=== PATIENT | female | born 1940 | race Caucasian/White ===

== ENCOUNTER 2016-05-08 19:10 | Inpatient (IN) | payer MEDICARE, OTHER ==
[~2016-05-08] VITALS: Ht 162.6 cm; Wt 65.5 kg
--- NOTE | ~2016-05-08 | DS ---
ADMIT: 05/08/2016 RM/LOC: 415 [facility] MR#: [id number] [address] [address] [place] [address] [place] [address] Discharge Summary SEX: F AGE: 75 : 1940 ADMISSION DATE: 05/08/2016 DISCHARGE DATE: 05/12/2016 DISCHARGE DIAGNOSES: 1. Mucus plugging and known history of laryngeal carcinoma, status post tracheostomy. 2. History recent cellulitis of trach with known MRSA and Pseudomonas infection. 3. Tracheal dilatation on 05/06/2015. 4. Diabetes. 5. Morbid obesity. HISTORY OF PRESENT ILLNESSES: Her history of present illness is well documented in her history and physical. LABORATORY AND RADIOGRAPHIC DATA: Her laboratory and radiographic during her assessment showed a white count of 7.3, hemoglobin 12.0, and platelet count 243,000. Her urinalysis showed no acute abnormalities. Her sodium was 140, potassium 3.6, BUN and creatinine 13 and 0.7, blood sugar 196, and albumin 3.3. ABG showed pH of 7.33, pCO2 of 58, and PO2 of 163. Her influenza was negative. Chest x-ray showed a stable postop changes with tracheostomy tube in place. Modified barium swallow, please see report as per her speech therapist. HOSPITAL COURSE: She was admitted to [facility] with increasing shortness of breath, brought in by squad from home, mucus plugging. We, at this time, will admit for aggressive pulmonary hygiene. She will need followup with Dr. Mejia as she has recently had a stretching of her trachea, esophageal dilatation. We will also try to work with her family as well as with her respiratory care provider to ensure that she is getting adequate oxygenation and humidification within the home setting. She is admitted as an OPO admit today during this hospitalization. Sydnie Garcia MD/ brown JOB #: [id number] CC: Sydnie Garcia MD, Attending Physician Sydnie Garcia MD, Family Physician
[~2016-05-08 19:10] MED LIST: ACETYLCYSTEINE IH; ASA CHILDREN'S81 MG PO; ASPIRIN EC81 MG PO; AUGMENTIN875 MG PO; BACTROBAN OINT.22 GM TP; BENADRYL-DPS25 MG PO; CEPHALEXIN PO; DELTASONE DPS1 MG PO; DELTASONE DPS10 MG PO; DIFLUCAN PO; DULCOLAX-DPS10 MG PR; DUONEB DPS3 ML IH; ECOTRIN81 MG PO; ENULOSE10 GM/15 M PO; GLUTOSE 1537.5 GM PO; HYDROCORTISONE 0.5% TP; KEFLEX-DPS500 MG PO; KLOR-CON M2020 ME1 PO; LASIX DPS20 MG PO; LASIX DPS40 MG PO; LEVAQUIN DPS500 MG PO; LEXAPRO DPS20 MG PO; LORTAB LIQUID D15 ML PO; MAALOX DPS30 ML PO; MUCOMYST 10% DPS4 ML IH; MUCOMYST 20% DP30 ML IH; NILSTAT SUSP DPS5 ML PO; NOVOLIN R,100 UNITS/ SQ; NOVOLIN R100 UNIT/1 SQ; ORGAN-I NR200 MG PO; PEPCID DPS20 MG PO; PERIDEX15 ML PO; PROAIR RESPICL90 MCG IH; PROLIA60 MG/ML SQ; REGLAN10 MG PO; SENOKOT DPS8.6 MG PO; SURFAK DPS240 MG PO; SYNTHROID DP0.088 MG PO; SYNTHROID100 MCG PO; TYLENOL DPS325 MG PO; VITAMIN D-32000 UNI1 PO; ZANTAC DPS150 MG PO; ZESTRIL DPS10 MG PO; ZOCOR20 MG PO
--- NOTE | 2016-05-09 01:36 | ER ---
ADMIT: 05/08/2016 RM/LOC: ER [facility] MR#: [id number] [address] [address] [place] [address] [place] [address] Emergency Room Report SEX: F AGE: 75 : 1940 DATE: 05/08/2016 CHIEF COMPLAINT: Shortness of breath. HISTORY OF PRESENT ILLNESS: The patient is a 75-year-old female, recently released from skilled care after prolonged stay for COPD with increased secretions and plugged cannula, transferred tonight with increasing respiratory distress, shortness of breath. When paramedics arrived, cannula was plugged. They removed the internal cannula, gave DuoNeb over trach with improvement. The patient does most of her own self-cares with daughter dropping in at least once a day. The patient was just seen by Dr. Mejia on May 05 and had tracheal and esophageal dilatations, now she states she cannot swallow. PAST MEDICAL HISTORY: None. ALLERGIES: NONE. MEDICATIONS: Please see nurse's MAR. ILLNESSES: Type 2 diabetes with oral and subcu insulin, COPD, hyperlipidemia, laryngeal cancer, status post radiation and chemo, and laryngectomy, tracheal and esophageal strictures, osteoporosis, decubitus, and hypothyroidism. OPERATIONS: Laryngectomy with tracheostomy. SOCIAL HISTORY: , lives independently. Past smoker. No illicit drugs or alcohol. FAMILY HISTORY: Negative per chart review. REVIEW OF SYSTEMS: A 12-point review of systems negative for all other systems, illnesses, or operations except as outlined above. PHYSICAL EXAMINATION: VITAL SIGNS: Temperature 96, pulse 97, respirations 26, BP 129/51, and SaO2 of 98% 6 L. GENERAL: Moderate distress, nontoxic, non-diaphoretic without jaundice or icterus. HEENT: Normocephalic. No evidence of epistaxis, rhinorrhea, or otorrhea. NECK: Supple without lymphadenopathy or thyromegaly. Tracheostomy with no evidence cellulitis. CHEST: Breath sounds equal and diminished with expiratory wheeze noted throughout. HEART: Regular rate and rhythm without murmur, gallop, or edema. ABDOMEN: Soft, nontender, nondistended without mass or megaly. Bowel sounds hypoactive. EXTREMITIES: No evidence of Homans sign, synovitis, or dermatitis. NEURO: EOMI. PERRLA. No evidence of drift, dysarthria, or ataxia. Gait not assessed. ADMIT: 05/08/2016 RM/LOC: ER [facility] MR#: [id number] [address] [address] [place] [address] [place] [address] Emergency Room Report SEX: F AGE: 75 : 1940 MENTAL STATUS: Alert, oriented, and cooperative without delusions, hallucinations, or abnormal thought content. MEDICAL DECISION MAKING: The patient was given oral challenge at bedside, tolerated water well without regurgitation, continuous albuterol 15 mg with ipratropium with improvement. Solu-Medrol was given in the field. Magnesium 2 g IV piggyback with decreased respiratory distress. Chest x-ray shows no infiltrate. EKG shows sinus rhythm without ST-T or Q-wave change, unchanged from previous. Normal CBC, CMP, except potassium 3.6, glucose 196, lactic 0.7, CRP 2.29, D-dimer 0.64 normal for age, and troponin less than 0.015. BNP 1502. Procalcitonin less than 0.05. UA; 1+ ketone, 300 glucose. ABGs 6 L; pH 7.36, pCO2 of 55, PO2 155. Discussed case at length with Dr. Garcia, who agreed to admit. The family strongly wants admission and understands that she needs more structured care than she can provide herself or their step dad is willing to provide. Suspect the patient will need skilled care yet again. DIAGNOSES: 1. Plugged tracheostomy cannula. 2. Chronic obstructive pulmonary disease. 3. Laryngeal cancer, status post laryngectomy and tracheostomy. RECOMMENDATION: Admit to inpatient telemetry for Dr. Garcia. ADMISSION/DISCHARGE CONDITION: Stable. The patient is a DNR/DNI. Vito Cordova MD/ modl JOB #: [id number] CC: Vito Cordova MD, Attending Physician Sydnie Garcia MD, Family Physician Sydnie aGrcia MD
--- NOTE | 2016-05-12 09:55 | NUR ---
PT HAS DISCHARGE ORDERS. PT WELL KNOWN TO OUR CLINIC. PLAN FOR PT TO GO HOME WITH [facility]. PU TO BUTTOCKS IS CHRONIC AND HAS BEEN HEALED SEVERAK TIMES THEN REOPENS D/T PT NON COMPLIANCE WITH OFFLOADING AT HOME. PLAN IS FOR PT TO RETURN HOME WITH [facility] AND FAMILY SUPPORT. SENSICARE BID AND PRN RECOMMENDED TO BUTTOCKS AND FOLLOW UP IN WOUND CARE CLINIC IN 1 WEEK WITH A SPECIAL PROCEDURE TECHNOLOGIST
--- NOTE | 2016-05-13 09:52 | CO ---
ADMIT: 05/08/2016 RM/LOC: 415 [facility] MR#: [id number] [address] [address] [place] [address] [place] [address] Consultation SEX: F AGE: 75 : 1940 DATE OF CONSULTATION: 05/12/2016 ATTENDING PHYSICIAN: Sydnie Garcia MD CONSULTING PHYSICIAN: Christopher Mejia MD CHIEF COMPLAINT: Soreness left of throatnjv with odynophagia and persistent dysphagia. HISTORY OF PRESENT ILLNESS: Elly is 75 years old. She is postop total laryngectomy, partial pharyngectomy, and esophageal repair, in treatment of squamous cell carcinoma. She is post surgical and radiation treatment and has had difficulty with recurring dysphagia that requires cervical esophageal dilation due to esophageal stricture. She underwent general anesthesia and esophageal dilation 2 weeks previous. She continues to have swallowing problems and has developed soreness in the left side of her throat. She was recently hospitalized for cellulitis surrounding her tracheostome, at this time is not having pain or swelling of the soft tissues of the neck. PHYSICAL EXAMINATION: HEENT: Shows her pupils to be equal. No proptosis. Ears clear. Nose; airway is patent. No mucus or purulence in the nasal cavity or nasopharynx. Mouth and pharynx, good symmetry. No exudate or lesions. NECK: No palpable adenopathy or masses. No induration or erythema to suggest recurrent cellulitis. Tracheostomy tube is in good position in permanent tracheostome with good patency and no purulence. PROCEDURE: Fiberoptic examination of the nose, pharynx, and esophagus performed with the flexible nasal endoscope. She tolerated this very well. The scope passed through the nose, nasopharynx, hypopharynx into the esophagus without restriction and there was no visible evidence of esophageal stricture to full length of the flexible endoscope. There was no evidence of lesion, tumor mass, or infection. Left pharynx has an abrasion in the hypopharynx likely from recent esophagoscopy with dilation. IMPRESSION: Soreness, left-sided throat, and odynophagia. Post cervical esophageal dilation without evidence of infection, tumor mass, or recurrent stricture. ADMIT: 05/08/2016 RM/LOC: 415 [facility] MR#: [id number] [address] [address] [place] [address] [place] [address] Consultation SEX: F AGE: 75 : 1940 RECOMMENDATIONS: Recommend we will continue to take diet as tolerated. At present, she is confined to using liquids. She is to continue analgesics p.r.n. I anticipate improvement in the pharyngeal soreness as the lower pharynx continues to heal. Concerning her swallowing ability, she should continue with speech and swallowing therapy in hopes of gradual improvement and ability to maintain adequate hydration and alimentation. Elly is scheduled for followup ENT exam in 2 weeks to debride the tracheostome and help prevent recurrence of the peristomal and cellulitis. Christopher Mejia MD/ shagufta JOB #: [id number] CC: Sydnie Garcia MD, Attending Physician Sydnie Garcia MD, Family Physician
[2016-05-13] MEDS ORDERED: CELEXA DPS20 MG PO (11:50)
[2016-05-13] MEDS ORDERED: KEFLEX-DPS500 MG PO (11:53)
[2016-05-13] MEDS ORDERED: TYLENOL ELIXIR PO (11:58)
--- NOTE | 2016-05-25 08:09 | HP ---
ADMIT: 05/08/2016 RM/LOC: [address] [facility] MR#: [id number] [address] [address] ELLY BORREGO [address] [place] [address] History and Physical SEX: F AGE: 75 : 1940 DATE OF SERVICE: HISTORY OF PRESENT ILLNESS: Elly is a 75-year-old female, who I care for, who has had multiple hospitalizations within the last year. She has a known history of laryngeal carcinoma, status post trach, recent hospitalizations for peritracheal cellulitis, MRSA, and Pseudomonas. She is admitted to the hospital at this time, status post tracheal dilatation on 05/06/2015, with increasing respiratory distress and mucous plugging. She was brought to the emergency room for further evaluation and care. In the ER, her pH was 7.33, pCO2 of 58, pO2 of 163, sodium 140, potassium 3.6, BUN and creatinine 13 and 0.17. White count 5.3, hemoglobin 12.0, and platelet count 243,000. UA was 1+ protein. Trach showed no acute changes. SOCIAL HISTORY: She lives with her . FAMILY HISTORY: Noncontributory. REVIEW OF SYSTEMS: As per HPI. Frequent hospitalizations. MEDICATIONS: Per her MAR. PHYSICAL EXAMINATION: GENERAL: She is alert, in no acute distress at this time. VITAL SIGNS: On O2 per mask, per her tracheostomy with humidification. LUNGS: She has soft inspiratory and expiratory wheezes present. EXTREMITIES: No evidence of edema. ASSESSMENT: Readmission a 75-year-old with history of laryngeal carcinoma with mucus plugging, respiratory distress, hypoxia, we at this time will admit, status post recent esophageal dilatation. We will ask Dr. Mejia to assist and follow in her care. Review her swallowing abilities as well as speech therapy. Continue her medications as appropriate. Continue to follow closely. Sydnie Garcia MD/ brown JOB #: [id number] CC: Sydnie Garcia MD, Attending Physician Sydnie Garcia MD, Family Physician
== END 2016-05-12 16:00 | disposition home health service (06) | DRG 206 ==
LOC: ER 19:10 → 4PCU 22:36
PROVIDERS: ADMIT Internal Medicine
PROC: 0CJY8ZZ Inspection of Mouth and Throat, Via Natural or Artificial Opening Endoscopic (ICD-10-PCS; principal; 2016-05-12)
DX: J95.03 Malfunction of tracheostomy stoma (principal); J44.9 Chronic obstructive pulmonary disease, unspecified; J98.09 Other diseases of bronchus, not elsewhere classified; R13.10 Dysphagia, unspecified; E66.01 Morbid (severe) obesity due to excess calories; E11.9 Type 2 diabetes mellitus without complications; R09.02 Hypoxemia; F32.9 Major depressive disorder, single episode, unspecified; E78.5 Hyperlipidemia, unspecified; M81.0 Age-related osteoporosis without current pathological fracture; E03.9 Hypothyroidism, unspecified; Z79.4 Long term (current) use of insulin; Z79.84 Long term (current) use of oral hypoglycemic drugs; Z85.21 Personal history of malignant neoplasm of larynx; Z87.891 Personal history of nicotine dependence; Z66 Do not resuscitate; Z86.14 Personal history of Methicillin resistant Staphylococcus aureus infection

== ENCOUNTER 2016-05-17 10:59 | Inpatient (IN) | payer MEDICARE, OTHER ==
[~2016-05-17] VITALS: Ht 162.6 cm; Wt 73.7 kg
--- NOTE | ~2016-05-17 | OR ---
ADMIT: 05/17/2016 RM/LOC: 406 [facility] MR#: [id number] [address] [facility] [address] [place] [address] [place] [address] [place] [address] Operative/Delivery Room Report SEX: F AGE: 75 : 1940 SURGERY DATE: 05/18/2016 SURGEON: Dipak Weinstein MD PREPROCEDURE DIAGNOSIS: Upper esophageal stricture status post laryngectomy and radiation therapy with recurrent dysphagia, failure to thrive. POSTPROCEDURE DIAGNOSIS: Upper esophageal stricture status post laryngectomy and radiation therapy with recurrent dysphagia, failure to thrive. PROCEDURE: EGD, PEG tube placement. INDICATIONS: The patient is 75-year-old female with laryngeal cancer status post laryngectomy, radiation therapy with recurrent upper esophageal stricture, dysphagia, failure to thrive who presents for upper endoscopy and G- tube placement. FINDINGS: Patient taken to the operative room. She was intubated and sedated. The gastroscope was introduced right at the oropharynx where there was immediately a stricture. Initially it was difficult to negotiate this stricture. I was going to dilate it, but I was able to eventually manipulate myself by this stricture into the distal esophagus, stomach through the pylorus into the normal duodenum. I was able with transillumination and palpation to find an area safe for G-tube placement at a previous G-tube site in the left subcostal region. We prepped with chlorhexidine, injected 1% lidocaine. I made a transverse 1 cm skin incision using #11 blade. Angiocath was placed within the stomach. A wire was threaded through our Angiocath. The wire was grasped with the wire loop and brought out through the mouth. The G-tube was threaded over our wire and brought through the anterior abdominal wall with skin markings at 2 cm. The PEG tube was assembled. The gastroscope was reintroduced down through the stricture into the stomach, showed G tube in good position with no complicating features. The gastroscope was removed. The patient tolerated the procedure without difficulty, transferred to recovery room in good condition. Dipak Weinstein MD/ shagufta JOB #: [id number] CC: Christopher Mejia, Attending Physician Sydnie Garcia, Family Physician
[~2016-05-17 10:59] MED LIST changes: +CELEXA DPS20 MG PO; +TYLENOL ELIXIR PO
--- NOTE | 2016-05-19 07:57 | CO ---
ADMIT: 05/17/2016 RM/LOC: 406 [facility] MR#: [id number] [address] [address] [place] [address] [place] [address] Consultation SEX: F AGE: 75 : 1940 DATE OF CONSULTATION: 05/18/2016 ATTENDING PHYSICIAN: Christopher Mejia CONSULTING PHYSICIAN: Sydnie Garcia MD REASON FOR CONSULTATION: Planned PEG tube secondary to inability to maintain nutrition as well as evidence of regurgitation through her tracheostomy and significant risk of aspiration. HISTORY OF PRESENT ILLNESS: Well documented in her H and P. LABORATORY AND RADIOGRAPHIC ASSESSMENT: Noted from her last admission, which was just within the last week. PAST MEDICAL HISTORY: Includes: 1. History of squamous cell carcinoma of the neck, resolving. 2. Total laryngectomy and partial pharyngectomy. 3. History of hyperlipidemia. 4. COPD. 5. Diabetes. 6. Hepatitis. 7. History of chronic gastric colonic dilatation. SOCIAL HISTORY: She lives with her . She has had frequent hospitalizations. Remote tobacco. No alcohol. FAMILY HISTORY: Noncontributory. She was seen and evaluated in Dr. Mejia's office and with her evidence of ADMIT: 05/17/2016 RM/LOC: 406 [facility] MR#: [id number] [address] [address] [place] [address] [place] [address] Consultation SEX: F AGE: 75 : 1940 persistent regurgitation and inability to maintain nutrition and intermittent vomiting, will be admitted for placement of PEG tube. ASSESSMENT AND PLAN: 1. History of diabetes. 2. History of malnutrition. 3. History of chronic obstructive pulmonary disease. 4. Hypoxia. 5. O2 dependent. 6. History of deconditioning. 7. History of chronic colonic dilatation. We will continue to follow closely. Sydnie Garcia MD/ shagufta JOB #: [id number] CC: Christopher Mejia, Attending Physician Sydnie Garcia, Family Physician
--- NOTE | 2016-05-19 07:57 | CO ---
ADMIT: 05/17/2016 RM/LOC: 406 [facility] MR#: [id number] [address] [address] [place] [address] [place] [address] Consultation SEX: F AGE: 75 : 1940 DATE OF CONSULTATION: 05/17/2016 ATTENDING PHYSICIAN: Christopher Mejia CONSULTING PHYSICIAN: Sydnie Garcia MD HISTORY OF PRESENT ILLNESS: Elly is a 75-year-old female, who I care for, who has had multiple hospitalizations within the last year. She has a known history of laryngeal carcinoma, status post trach, recent hospitalizations for peritracheal cellulitis, MRSA, and Pseudomonas. She is admitted to the hospital at this time, status post tracheal dilatation on 05/06/2015, with increasing respiratory distress and mucous plugging. She was brought to the emergency room for further evaluation and care. In the ER, her pH was 7.33, pCO2 of 58, pO2 of 163, sodium 140, potassium 3.6, BUN and creatinine 13 and 0.17. White count 5.3, hemoglobin 12.0, and platelet count 243,000. UA was 1+ protein. Trach showed no acute changes. SOCIAL HISTORY: She lives with her . FAMILY HISTORY: Noncontributory. REVIEW OF SYSTEMS: As per HPI. Frequent hospitalizations. MEDICATIONS: Per her MAR. PHYSICAL EXAMINATION: GENERAL: She is alert, in no acute distress at this time. VITAL SIGNS: On O2 per mask, per her tracheostomy with humidification. LUNGS: She has soft inspiratory and expiratory wheezes present. EXTREMITIES: No evidence of edema. ASSESSMENT: Readmission a 75-year-old with history of laryngeal carcinoma with mucus plugging, respiratory distress, hypoxia, we at this time will admit, status post recent esophageal dilatation. We will ask Dr. Mejia to assist and follow in her care. Review her swallowing abilities as well as speech therapy. Continue her medications as appropriate. Continue to follow closely. DISCHARGE SUMMARY: She was admitted on 05/16/2016. DISCHARGE DIAGNOSES: 1. Mucus plugging and known history of laryngeal carcinoma, status post tracheostomy. 2. History recent cellulitis of trach with known MRSA and Pseudomonas infection; tracheal dilatation on 05/06/2015; diabetes; and morbid obesity. Her history of present illness is well documented in her H and P. LABORATORY AND RADIOGRAPHIC DATA: Her laboratory and radiographic during her ADMIT: 05/17/2016 RM/LOC: 406 [facility] MR#: [id number] [address] [address] [place] [address] [place] [address] Consultation SEX: F AGE: 75 : 1940 assessment showed a white count of 7.3, hemoglobin 12.0, and platelet count 243,000. Her urinalysis showed no acute abnormalities. Her sodium was 140, potassium 3.6, BUN and creatinine 13 and 0.7, blood sugar 196, and albumin 3.3. ABG showed pH of 7.33, pCO2 of 58, and PO2 of 163. Her influenza was negative. Chest x-ray showed a stable postop changes with tracheostomy tube in place. Modified barium swallow, please see report as per her speech therapist. HOSPITAL COURSE: She was admitted to [facility] with increasing shortness of breath, brought in by squad from home, mucus plugging. We, at this time, will admit for aggressive pulmonary hygiene. She will need followup with Dr. Mejia as she has recently had a stretching of her trachea, esophageal dilatation. We will also try to work with her family as well as with her respiratory care provider to ensure that she is getting adequate oxygenation and humidification within the home setting. She is admitted as an OPO admit today during this hospitalization. Sydnie Garcia MD/ shagufta JOB #: [id number] CC: Christopher Mejia, Attending Physician Sydnie Garcia, Family Physician
--- NOTE | 2016-05-21 08:04 | OR ---
ADMIT: 05/17/2016 RM/LOC: 406 [facility] MR#: [id number] [address] [address] [place] [address] [place] [address] Operative/Delivery Room Report SEX: F AGE: 75 : 1940 SURGERY DATE: 05/18/2016 SURGEON: Christopher Mejia MD PREOP DIAGNOSES: 1. Dysphagia. 2. History of cervical esophageal stricture. 3. Left pharyngeal pain. 4. Cough. FINDINGS: Fiberoptic examination of the trachea performed through the existing tracheostomy tube identifying a patent trachea to the mayelin. There was yellowish sputum in the mainstem bronchi bilaterally, left greater than right, but no hard crusting or obstruction. Nasal, nasopharyngeal, oropharyngeal, hypopharyngeal, and cervical esophagus examined with the flexible scope transnasally. No ulcerations, lesions, or signs of infection. I was able to pass into the cervical esophagus without restriction (scope 3 mm diameter) IMPRESSION: 1. Dysphagia with inability to swallow associated with vomiting and nasal regurgitation, appears primary muscle dysfunction rather than pharyngeal or cervical esophageal obstruction. 2. Yellowish sputum, mainstem bronchi, possible bacterial (history of pneumonia). RECOMMEND: Proceed with G-tube during anesthesia. We will obtain specimen of bronchial secretions with ET aspiration for culture and sensitivity. Christopher Mejia MD/ shagufta JOB #: [id number] CC: Christopher Mejia, Attending Physician Sydnie Garcai, Family Physician
--- NOTE | 2016-05-21 08:04 | HP ---
ADMIT: 05/17/2016 RM/LOC: 406 [facility] MR#: [id number] 2620 [facility] [address] [place] [phone] [place] [address] [place] [address] History and Physical SEX: F AGE: 75 : 1940 DATE OF SERVICE: HISTORY OF PRESENT ILLNESS: Elly is 75 years old. She is admitted with inability to swallow. She has recent onset vomiting, but has had difficulty with dysphagia. I performed esophagoscopy and cervical esophageal dilation a few weeks ago, which did afford some improvement in the swallowing. Within the last few days over the weekend, she developed nasal regurgitation and intermittent vomiting and unable to swallow most foods as well as medicines. She has had squamous cell carcinoma of the pharynx, has required pharyngectomy and laryngectomy with esophageal interposition as repair and had postop radiation therapy causing her pharyngeal and esophageal motility disturbance as well as recurrent stricture. Because of the ongoing difficulties, I recommended readmission for intravenous fluids for hydration. General Surgery consultation possibility of G tube placement, and we will ask Dr. Sydnie Garcia to continue general internal medical surveillance and care. MEDICATIONS: Prior to admission: 1. Citalopram. 2. Levothyroxine. 3. Simvastatin. 4. Furosemide. 5. Potassium. 6. Prednisone. 7. Lactulose. 8. Guaifenesin. 9. Bisacodyl. 10.Aspirin. 11.Senokot. 12.DuoNeb. 13.Acetylcysteine. 14.Ranitidine. 15.Tylenol. 16.NovoLog insulin. ALLERGIES: NO MEDICINES KNOWN. SHE IS SENSITIVE TO ADHESIVE TAPE. PHYSICAL EXAMINATION: GENERAL: A 75-year-old, who is alert and very cooperative. She has permanent tracheostome with Denzel metal tracheostomy tube in place. There is no evidence of surrounding skin cellulitis or active infection. RESPIRATIONS: Without wheeze or stridor. LUNGS: Clear to auscultation. Mouth and pharynx clear. NECK: Postoperative changes and postradiation induration, but no adenopathy or neck masses palpable. ABDOMEN: Soft. EXTREMITIES: No edema. ADMIT: 05/17/2016 RM/LOC: 406 [facility] MR#: [id number] [address] [address] [place] [address] History and Physical SEX: F AGE: 75 : 1940 IMPRESSION: 1. Dysphagia progressing to inability to swallow associated with vomiting and nasal regurgitation during deglutition. 2. Diabetes. 3. 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 PLAN: 1. General Surgery consultation for G-tube placement (discussed with the patient). 2. Internal Medicine consultation with Dr. Sydnie Garcia. Christopher Mejia MD/ shagufta JOB #: [id number] CC: Christopher Mejia, Attending Physician Sydnie Garcia, Family Physician
--- NOTE | 2016-05-24 02:11 | NUR ---
AT 1830, PT WAS NOTED TO BE IN CONTINUED RESPIRATORY DISTRESS AND REACHING ARMS FORWARD GRASPING AIMLESSLY. MADE EYE CONTACT WHEN APPROACHED AND SPOKEN TO BUT DID NOT GIVE APPROPRIATE RESPONSES AND FACIAL EXPRESSIONS APPEARED CONFUSED. DAUGHTER PRESENT AT BEDSIDE REPORTED THAT PT WAS PULLING ON TRACHE MASK. ASSUMING THE PT WAS THRISTY, SHE WAS GIVING THE PT APPLE JUICE. PT ABLE TO TAKE SMALL SIPS BUT BREATHING WOULD BECOME WORSE. VS UNSTABLE FROM PREVIOUS ASSESSMENT. PLEASE REFER TO VS RECORDED IN NURSING DOCUMENTATION OF CHART. LIPS AND NAILBEDS ARE CYANOTIC IN COLOR. TRACHOSTOMY CLEAR OF DEBRIS AND TO OBVIOUS OBSTRUCTION. ABDOMEN CONTINUES TO BE DISTENDED, TENDER, TYMPANIC. PT CONTINUES TO SHOW S/S OF DISTRESS AND PROBABLE PAIN. PERFORMED STRAIGHT CATH AND OBTAINED 150 ML OF STRAW COLORED. PT PAIN LESSENED SLIGHTLY BUT CONTINUES TO BE RESTLESS AND SHOW S/S OF RESPIRATORY AND ACUTE DISTRESS. FAMILY ARRIVING AT BEDSIDE AND UNSURE ABOUT INTUBATION. REPORTED THIS AND ASSESSMENT FINDING TO . PLEASE REFER TO PROGRESS NOTES
--- NOTE | 2016-06-14 08:53 | CO ---
ADMIT: 05/17/2016 RM/LOC: [address] [facility] MR#: [id number] [address] [address] ELLY BORREGO [address] [place] [address] Consultation SEX: F AGE: 75 : 1940 DATE OF CONSULTATION: 05/17/2016 ATTENDING PHYSICIAN: Christopher Mejia CONSULTING PHYSICIAN: Dipak Weinstein MD REASON FOR CONSULTATION: Ongoing persistent dysphagia. HISTORY OF PRESENT ILLNESS: Elly is a very pleasant 75-year-old female, who has had issues with dysphagia for quite some time now. She has had numerous EGDs in the past and with dilatation for esophageal strictures. She also states that she has had PEG tubes in the past. She thinks it has been about 3 to 4 throughout her life. There was some difficulty understanding her as the patient has a tracheostomy. 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 PAST MEDICAL HISTORY: Significant for hyperlipidemia, COPD, diabetes, and hepatitis. PAST SURGICAL HISTORY: 1. Numerous EGDs with dilatation and apparent PEG tube placement as well. 2. Hysterectomy. 3. Appendectomy. 4. Breast surgery. 5. Cholecystectomy. 6. Carpal tunnel surgery. 7. Pharyngectomy. 8. Laryngectomy. ALLERGIES: NO KNOWN DRUG ALLERGIES. MEDICATIONS: Well documented in chart. FAMILY HISTORY: Noncontributory. SOCIAL HISTORY: The patient is a former alcohol user, but denies any tobacco use. REVIEW OF SYSTEMS: CONSTITUTIONAL: The patient denies any fever, chills, or night sweats. HEAD: The patient states occasional headaches, but denies any dizziness or lightheadedness. The rest of a comprehensive 10-point review of systems was performed, and all other systems are negative. PHYSICAL EXAMINATION: GENERAL: The patient is in no acute distress. She is alert and oriented. HEENT: Head is normocephalic and atraumatic. EOMS are intact. Conjunctivae are free of icterus, erythema, or pallor. Pinnae free of deformities. Nose ADMIT: 05/17/2016 RM/LOC: 406 [facility] MR#: [id number] [address] [address] ELLY BORREGO [address] [place] [address] Consultation SEX: F AGE: 75 : 1940 is midline. No tracheal deviation. Tracheostomy noted. NECK: Supple. SKIN: Negative for jaundice, clubbing, edema, pallor, or cyanosis. LUNGS: Normal respiratory effort. Clear to auscultation bilaterally. HEART: Regular rate and rhythm. Distal pulses intact. No murmurs noted. ABDOMEN: Soft, but distended. No surgical scars noted upon inspection. NEUROLOGIC: Grossly intact. ASSESSMENT: Persistent dysphagia. PLAN: The plan is to have the patient undergo EGD with PEG tube placement tomorrow performed by Dr. Weinstein. I discussed the risks, alternatives, benefits, and complications of this procedure to which the patient is in agreement of this plan, had all of her questions answered and would like to proceed. I have her on the surgery schedule, so I will get her consented, and we will go from there. MARQUIS Martin / Dipak Weinstein MD / shagufta JOB #: [id number] CC: Christopher Mejia, Attending Physician Sydnie Garcia, Family Physician
--- NOTE | 2016-06-22 08:07 | DS ---
ADMIT: 05/17/2016 RM/LOC: 314 [facility] MR#: [id number] [address] [address] ELLY BORREGO [address] [place] [address] General Discharge Summary SEX: F AGE: 75 : 1940 ADMISSION DATE: 05/17/2016 DISCHARGE DATE: 05/24/2016 Summary DISHARGE DIAGNOSES: Her discharge diagnoses at the time of her was; 1. History of laryngeal carcinoma, status post tracheostomy with severe dysphagia, vomiting, nasal regurgitation with placement of G-tube. 2. Development of sepsis secondary to G-tube placement. 3. Free air in abdomen, with gastric PEG tube migration out of the stomach. 4. History of diabetes mellitus. 5. Malnutrition. 6. Renal insufficiency. 7. Chronic obstructive pulmonary disease. 8. Deconditioning. 9. History of chronic colonic dilatation and ileus. HISTORY OF PRESENT ILLNESS: Well-documented in her H and P. LABORATORY AND X-RAY DATA: Her laboratory and radiographic assessment is as followed. On admission, her hemoglobin was 35.3, platelet count of 312,000, white count of 9.7. Near her , her white count was 7.8, hemoglobin 12.4, platelet count of 324,000. Blood sugars ranged in the mid 300s down into the 100s. Lactic acid was 6.5 on 05/24/2016. Her serum sodium range was 134, BUN and creatinine were 35 and 1.7. On the , her sodium was 129, potassium 4.4, BUN and creatinine 35 and 1.8. Her sputum showed Providencia rettgeri with normal selma. Urinalysis showed 1+ blood, leukocytes negative. ABGs on 05/23/2016, showed a pH of 7.25, pCO2 of 34, PO2 of 66.6. Blood culture showed Staph aureus one of two sets on 05/23/2016. CT of abdomen on 05/23/2016, showed I do not believe that the gastric PEG tube is in the stomach. The sigmoid colon is markedly distended and the cephalic loop extends to diaphragm due to development of ascites or free fluid in pelvis. Chest x-ray showed on 05/23/2016, interval development of left lower lobe infiltrate. On 05/24/2016, increased left lower lobe opacity, which could be pleural fluid with atelectasis or consolidation, dilated loops of upper abdomen with pneumoperitoneum. On her operative report, she had a laparoscopic evaluation of the trachea which showed evidence of dysphagia with inability to swallow associated with vomiting and nasal regurgitation, it appears primary muscle dysfunction rather than pharyngeal or cervical esophageal obstruction, yellowish sputum, mainstem bronchus, possible bacterial with history of pneumonia. This was performed by Dr. Mejia. Her G- tube placement on 05/18/2016, performed by Dr. Weinstein. HOSPITAL COURSE: Elly is a well-known patient of mine, who has had numerous hospital admissions secondary to recurrent dysphagia secondary to greater than 10 years of having a tracheostomy with evidence of esophageal strictures; history of diabetes; severe COPD with hypoxia, she is O2 dependent as well as deconditioning; history of chronic colonic dilatation. She was initially admitted to [facility] under the care of Dr. Mejia for ADMIT: 05/17/2016 RM/LOC: 314 [facility] MR#: [id number] [facility] [address] [address] [place] [address] General Discharge Summary SEX: F AGE: 75 : 1940 further evaluation as she had evidence of dysphagia, vomiting, and nasal regurgitation. She has had several evaluations of her upper esophageal area and has had esophageal dilatations numerous in the past. She did not have any evidence of recurrent carcinoma. We did ask General Surgery to see and assist in her care as she no longer would be able to take oral nutrition and needed a placement of a PEG tube for nutritional support. We were asked to assist and follow in her care as I am her primary physician. We did Accu-Cheks, pneumatic compression stockings, did ask Behavioral Health Aide to see possibility of transferring her to skilled care in the postop period. She did have a sputum for C and S per her ET tube when she underwent her evaluation per Dr. Mejia. 04/20, we were able to use her G-tube. She was started on Jevity. We did ask Speech to see. At that time, her vital signs were stable. Hemoglobin was 11.7, platelet count was 312,000, her creatinine was 0.9. Family felt they possibly could transfer her home, but as per further developments during her hospitalization, her care level appeared to be too great for them to be able to care for her. She was noted to have Providencia in her sputum and was started on Cipro. There was no bed available at [facility]. Family did not want her to go into any other facilities. We at that time as per her family, felt that still she would be unable to go home secondary to her high level of care as she has a history of diabetes, which needs monitoring as well as this new placement of a feeding tube with continued nutritional needs. All of our attempts to find senior living placement, we did not find any that was acceptable to the family. The decision was made on 05/21/2016, we would possibly discharge her, continue bolus tube feedings, Accu-Cheks. Family is aware that they need to be with her 24/7, 70/30 insulin, follow up with me in 1 week, and Cipro 500 mg one tablet p.o. b.i.d. for 6 days as well as her other routine meds. Family at that time, son became involved. He was continued to be very concerned about their inability to care for her and her discharge was canceled. On 05/23/2016, she developed on chest x-ray and was found to have evidence of what appeared to be free air. She underwent further assessment with perforation series as she had evidence of increasing pain and discomfort as well as abdominal distention. Surgery was notified. There were no residuals from tube feeding. No nausea or vomiting. In further evaluation, she was seen and evaluated by Dr. Nassar, tube feeding was held. Her G-tube was placed to gravity. A CT scan of her abdomen and pelvis was performed, which ADMIT: 05/17/2016 RM/LOC: 314 [facility] MR#: [id number] [address] [place] [id number] ELLY BORREGO [address] [place] [address] General Discharge Summary SEX: F AGE: 75 : 1940 did show evidence of possible migration of the G-tube out of the stomach. Underwent further assessment with Gastrografin at bedside. G-tube was found to be not in the stomach, the tube was removed, she was started on IV antibiotics. She had progressive decline in her condition, increasing shortness of breath, respiratory distress as well as hypotension. She was transferred to the ICU, Michel catheter was placed, given IV fluids. ID evaluation with lactic acid. In addition, did communicate with the family concerned code status. Her Cipro was changed to IV. Lactic acid was noted to be 6.5. She was started on Levophed secondary to hypotension. She had progressive decline. After discussion by family, decision was made to make her comfortable. She was then transferred to initiate comfort care and she subsequently did . Sydnie Garcia MD/ rufinol JOB #: [id number] CC: Christopher Mejia MD, Attending Physician Sydnie Garcia MD, Family Physician
== END 2016-05-24 06:45 | disposition expired | DRG 391 ==
LOC: 4PCU 10:59 → 3ICU 05-23 19:30
PROVIDERS: ADMIT Otolaryngology
PROC: 0DH63UZ Insertion of Feeding Device into Stomach, Percutaneous Approach (ICD-10-PCS; principal; 2016-05-18)
PROC: 3E0G76Z Introduction of Nutritional Substance into Upper GI, Via Natural or Artificial Opening (ICD-10-PCS; 2016-05-18)
PROC: 0BJ17ZZ Inspection of Trachea, Via Natural or Artificial Opening (ICD-10-PCS; 2016-05-18)
DX: R13.10 Dysphagia, unspecified (principal); A41.9 Sepsis, unspecified organism; J96.21 Acute and chronic respiratory failure with hypoxia; R57.8 Other shock; E46 Unspecified protein-calorie malnutrition; Z93.0 Tracheostomy status; E87.1 Hypo-osmolality and hyponatremia; K94.23 Gastrostomy malfunction; K94.22 Gastrostomy infection; Z51.5 Encounter for palliative care; J44.9 Chronic obstructive pulmonary disease, unspecified; E66.01 Morbid (severe) obesity due to excess calories; E11.9 Type 2 diabetes mellitus without complications; E86.0 Dehydration; R11.10 Vomiting, unspecified; J98.09 Other diseases of bronchus, not elsewhere classified; R09.02 Hypoxemia; E78.5 Hyperlipidemia, unspecified; Z85.21 Personal history of malignant neoplasm of larynx; Z86.14 Personal history of Methicillin resistant Staphylococcus aureus infection